=== PATIENT | male | born 1990 | race African-American/Black ===

== ENCOUNTER 2019-08-10 12:14 | Emergency (ER) | payer OTHER, SELFPAY ==
[2019-08-10 12:38] VITALS: BP 139/73; PULSE 81; RESP 18; TEMP 36.4; O2SAT 100
--- NOTE | 2019-08-10 12:45 | ED.GENADULT ---
HPI - General Adult General Chief complaint: Unspecified Stated complaint: Rib pain Time Seen by Provider: 08/10/19 12:45 Source: patient Mode of arrival: ambulatory Limitations: no limitations History of Present Illness HPI narrative: Chelle Ivy is a 29 yo male with no PMH who complains of L chest wall pain - lifts 8 lbs boxes at work, pain on twisting Related Data Allergies Allergy/AdvReac Type Severity Reaction Status Date / Time No Known Allergies Allergy Verified 08/10/19 12:42 Review of Systems Review of Systems: Narrative: CONSTITUTIONAL: Denies fever, chills, sweats. EYES: Denies visual changes, redness, discharge. ENT: Denies rhinorrhea, congestion, sore throat, otalgia. CARDIOVASCULAR: Denies chest pain, palpitations, edema. Chest wall pain RESPIRATORY: Denies dyspnea, wheezing, cough GASTROINTESTINAL: Denies abdominal pain, nausea, vomiting, diarrhea. GENITOURINARY: Denies dysuria, hematuria, abnormal discharge SKIN: Denies rash or itching. NEUROLOGIC: Denies numbness, or focal weakness. PSYCHIATRIC: Denies anxiety or depression. [facility] Family History Family History Mother Family history of thyroid disease Grandparent Family history of cardiovascular disease Social History Social History Smoking status: Never smoker Alcohol intake: current Gender identity (if verbalized by the patient): Male Comments At time of signature, I agree with nursing past medical, surgical, social and family history. There is no relevant family history pertinent to the presenting complaint. Exam Narrative: Exam Narrative: GENERAL: This is a well-nourished, well-developed patient, in mild distress. afebrile, eating and drinking HEAD: normocephalic, atraumatic. EYES: Sclera clear/white. Vision is grossly intact. EARS: External ears normal, . Hearing grossly intact. NOSE: External nose normal with nasal discharge, nares without redness, has rhinorrhea. THROAT: Mucous membranes moist, CARDIOVASCULAR: Regular rate and rhythm without murmurs, gallops, or rubs. chest wall pain with lifting/twisting L intercostal 4/5 RESPIRATORY: Clear to auscultation. Breath sounds equal bilaterally. No wheezes, rales, or rhonchi. Occ dry cough GASTROINTESTINAL: Abdomen soft, non-tender, SKIN: warm, intact with no suspicious lesions or rash, good texture and turgor. NEURO: awake, alert, and oriented to person, place and time. There were no obvious focal neurologic abnormalities. Steady gait EXTREMITIES: Normal range of motion. BACK: Nontender without deformity Course Course Emergency Course: strated on ibuprofen Vital Signs Vital signs: Vital Signs Temperature 97.6 F 08/10/19 12:38 Pulse Rate 81 08/10/19 12:38 Respiratory Rate 18 08/10/19 12:38 Blood Pressure 139/73 08/10/19 12:38 Pulse Oximetry 100 08/10/19 12:38 Temperature 97.6 F 08/10/19 12:38 Pulse Rate 81 08/10/19 12:38 Respiratory Rate 18 08/10/19 12:38 Blood Pressure 139/73 08/10/19 12:38 Pulse Oximetry 100 08/10/19 12:38 Medical Decision Making Differential Diagnosis Differential Diagnosis: costochondritis vs rib injury vs atelectasis Vital Signs Vital Signs: Vital Signs Temperature 97.6 F 08/10/19 12:38 Pulse Rate 81 08/10/19 12:38 Respiratory Rate 18 08/10/19 12:38 Blood Pressure 139/73 08/10/19 12:38 Pulse Oximetry 100 08/10/19 12:38 Temperature 97.6 F 08/10/19 12:38 Pulse Rate 81 08/10/19 12:38 Respiratory Rate 18 08/10/19 12:38 Blood Pressure 139/73 08/10/19 12:38 Pulse Oximetry 100 08/10/19 12:38 Discharge Plan Discharge Clinical Impression: Costochondritis, acute Patient Disposition: Home, Self-Care Condition: Stable Instructions: Costochondritis (ED) Prescriptions: New ibuprofen 600 mg tablet 600 mg PO TID PRN (Reason: fever or pain) Qty: 3
== END 2019-08-10 12:57 | disposition home or self-care (01) ==
PROVIDERS: Emergency Provider Nurse Practitioner
DX: M94.0 Chondrocostal junction syndrome [Tietze] (principal)
CPT/HCPCS: 99213; G0463